=== PATIENT | female | born 2000 | race Caucasian/White ===

== ENCOUNTER 2024-06-19 13:46 | Emergency (ER) | payer OTHER, SELFPAY ==
[2024-06-19 13:50] VITALS: BP 117/78
[2024-06-19 14:03] LABS: % Basophils 0.6 % (0-2); % Eosinophils 0.3 % (0-6); % Immature Granulocytes 0.1 % (0-0.5); % Lymphocytes 14.8 % (20.5-51.1); % Monocytes 9.9 % (1.7-9.3); % Neutrophils 74.3 % (42.2-75.2); Absolute Monocytes 0.7 10^3/uL (0.1-0.6); Absolute Neutrophils 5.1 10^3/uL (1.4-6.5); Hemoglobin 12.6 g/dL (12.0-16.0); Mean Corp Hgb Conc. 34.1 g/dL (33.0-37.0); Mean Corpuscular Hgb 30.5 pg (27.0-31.0); Mean Corpuscular Volume 89.6 fL (81.0-99.0); Mean Platelet Volume 9.2 fL (7.4-10.4); Nucleated Red Blood Cells % 0 %; Platelet Count 187 10^3/uL (130-400); Red Blood Cell Count 4.13 10^6/uL (4.20-5.40); Red Cell Dist. Width 12.4 % (11.5-14.5); White Blood Cell Count 6.8 10^3/uL (4.8-10.8)
[2024-06-19 14:11] LABS: Urine Albumin 1+ (Neg - Trace); Urine Bilirubin Negative (Negative); Urine Character Clear (Clear); Urine Color Yellow; Urine Glucose Negative (Negative); Urine Ketone 3+ (Negative); Urine Leukocyte Negative (Negative); Urine Nitrite Negative (Negative); Urine Occult Blood 1+ (Negative); Urine Specific Gravity 1.015 (<1.030); Urine Urobilinogen Negative (Neg - 1+)
[2024-06-19 14:20] LABS: Urine Mucus Moderate
[2024-06-19 14:22] LABS: Urine White Cell 0-2 /HPF (0-5)
[2024-06-19 14:24] LABS: HCG, Serum Qualitative Screen Negative
[2024-06-19 14:36] LABS: ALT (SGPT) 13 U/L (0-35); AST (SGOT) 20 U/L (14-36); Albumin 4.2 g/dl (3.5-5.0); Alkaline Phosphatase 34 U/L (38-126); Blood Urea Nitrogen 12 mg/dl (7-17); Calcium 9.1 mg/dl (8.4-10.2); Carbon Dioxide 21 mmol/L (22-30); Chloride 105 mmol/L (98-107); Glucose 95 mg/dl (70-99); Lipase 161 U/L (23-300); Potassium 3.7 mmol/L (3.5-5.1); Sodium 137 mmol/L (135-145); Total Bilirubin 0.6 mg/dl (0.2-1.3); Total Protein 6.9 g/dl (6.3-8.2); eGFR > 60.00
--- NOTE | 2024-06-19 15:34 | ED.GENMED ---
History of Present Illness
General
Chief Complaint: Abdominal Pain
Source: patient
Exam Limitations: none
Time Seen by Provider: 06/19/24 15:22
Nursing documentation reviewed up to this point in time: agreed with
History of Present Illness
History of Present Illness:
23-year-old female presenting to the emergency department today with concerns of abdominal pain mainly to the lower abdomen mainly to the left lower quadrant with associated chills denies specific fevers has nausea and significant diarrhea at least
20 episodes over the past few days. Denies vomiting specifically no specific fevers. Has had IBS in the past
Review of Systems
Review of Systems
Allergies reviewed?: Yes
All Other Systems: ROS reviewed and negative except as documented in HPI and ROS
Phy Exam
Physical Exam
Physical Exam:
GENERAL: Alert , in no apparent distress
EYE: pupils equal and reactive
NECK: Supple, no significant adenopathy.
ENT: o/p clr, mmm.
CARDIAC: Regular rate and rhythm .
LUNGS: Clear breath sounds bilaterally, no acute respiratory distress, no wheezes/rales/rhonchi
ABDOMEN: Tenderness throughout the lower abdomen maximal to the left lower quadrant, otherwise soft, without focal tenderness, no r/g, no cvat
NEUROLOGICAL: Alert and oriented, no focal neuro deficits
SKIN: Warm and dry, skin intact.
MUSCULOSKELETAL: No edema, well perfused.
PSYCH: Normal and appropriate interaction.
Course
Orders/Labs/Results
Orders:
Orders
06/19/24 13:54
Test Result ONCE
06/19/24 13:56
Complete Blood Count/With Diff Urgent
Comprehensive Metabolic Panel Urgent
HCG, Serum Qualitative Screen Urgent
Comment: Notify provider if positive test present
Lipase Urgent
Urinalysis Reflex To Culture Urgent
Date Specimen was Collected: 06/19/24
Time Specimen was Collected: 13:54
Urine Microscopic Reflex Cult Urgent
06/19/24 15:30
CT Abd/pel W Iv And Oral Contr Urgent
Comment:
Reason For Exam: lower abd pain
STOOL [C difficile Antigen & Toxins] Urgent
LYNDSAY Source: Feces/Stool
Specimen Description:
Stool Culture Urgent
LYNDSAY Source: Feces/Stool
Specimen Description:
Dicyclomine HCl [Bentyl] 20 mg IM NOW STA
Iohexol [Omnipaque] See Protocol PO NOW STA
Abnormal Lab Results
06/19/24
13:56
RBC 4.13 L 10^6/uL
(4.20-5.40)
Absolute Lymphs (auto) 1.0 L 10^3/uL
(1.2-3.4)
Absolute Monos (auto) 0.7 H 10^3/uL
(0.1-0.6)
Lymphocytes % 14.8 L %
(20.5-51.1)
Monocytes % 9.9 H %
(1.7-9.3)
Carbon Dioxide 21 L mmol/L
(22-30)
Alkaline Phosphatase 34 L U/L
(38-126)
Urine Ketones 3+ A
(Negative)
Ur Occult Blood Reflex 1+ A
(Negative)
Urine RBC 3-6 A /HPF
(0-2)
Urine Albumin (Reflex) 1+ A
(Neg - Trace)
06/19/24 13:56
06/19/24 13:56
Vital Signs
Initial and Last Documented VS:
Initial Vital Signs
Temp Pulse Resp BP Pulse Ox
98.9 F 74 16 117/78 100
06/19/24 13:50 06/19/24 13:50 06/19/24 13:50 06/19/24 13:50 06/19/24 13:50
Last Documented Vital Signs
Temp Pulse Resp BP Pulse Ox
98.9 F 74 18 117/78 100
06/19/24 13:50 06/19/24 13:50 06/19/24 15:50 06/19/24 13:50 06/19/24 13:50
MDM/Problems Addressed
MDM/Problems Addressed:
23-year-old female presenting to the emergency department today with concerns of lower abdominal discomfort over the past few days associated diarrhea and nausea. Does have reproducible tenderness throughout the lower abdomen. Maximal to the left
lower quadrant. Labs unremarkable. Urinalysis without signs of infection. CT scan was performed considering the reproducible tenderness to the lower abdomen. CT resulted showing colitis. At this point patient will trial Imodium considering no
evidence of dysentery. Patient claims that she is going on a vacation considering this and the concern that she would have difficulty with follow-up she was written for an antibiotic to only be taken if symptoms are persisting. Otherwise return
precautions given.
*Critical Care Note
Total Time (30-74mins, 75-104mins- exclusive of procedures): Not Applicable
ED Attending Note
-
Portions of this chart may have been created with voice recognition software.� Occasional wrong word or��sound alike� substitutions may have occurred due to the inherent limitations of voice recognition software.
Discharge Plan
Departure
Patient Disposition: Home (Routine Discharge)
Date of Disposition: 06/19/24
Time of Disposition: 18:35
Patient with high blood pressure during this ER visit?: No
Condition: Good
Covid-19: Not Applicable
Discharge Problem:
Abdominal pain, Diarrhea
Instructions: Diarrhea in teens and adults, Abdominal Pain
Prescriptions:
New
azithromycin 500 mg tablet
500 mg PO DAILY 3 Days Qty: 3 0RF
Referrals:
NONE,* [Family Provider] -
Activity Restrictions/Additional Instructions:
You came to the emergency department today with concerns of abdominal discomfort and diarrhea. Here your CT scan showed colitis. Your labs are reassuring. Please use Imodium to help with symptoms and otherwise use azithromycin only as needed.
Please follow closely with your primary care doctor. Return for any worsening, new or concerning symptoms.
Interventions
Interventions:
*Risk Screen - Suicide Last Done: 06/19/24 13:50
*General Assessment Last Done: 06/19/24 13:50
*Neglect/Abuse Screening Last Done: 06/19/24 15:49
*ED COVID-19 Vaccine History Last Done: 06/19/24 13:50
BS-Offexl-Bmjdnrhjai Assessment Last Done: 06/19/24 15:49
Discharge Date and Time
Print Language: SWEDISH
[2024-06-19] MEDS: OMNIPAQUE 50 ML PO (15:35)
[2024-06-19] MEDS: BENTYL 20 MG IM (15:40)
[2024-06-19 18:38] VITALS: BP 99/64
== END 2024-06-19 18:43 | disposition home or self-care (01) ==
LOC: EMR 13:46
PROVIDERS: Student in an Organized Health Care Education/Training Program; EMERGENCY PHYSICIAN Emergency Medicine
DX: R10.9 Unspecified abdominal pain (principal); R19.7 Diarrhea, unspecified
CPT/HCPCS: 99284; 96372; 74177; 80053; 81003; 81015; 83690; 84703; 85025; Q9967